=== PATIENT | female | born 1985 | race Two or more races ===

== ENCOUNTER 2022-01-30 14:33 | Inpatient (IN) | payer OTHER ==
[~2022-01-30] VITALS: Ht 175.3 cm; Wt 52.6 kg
--- NOTE | 2022-01-30 14:55 | NUR ---
BLOOD SUGAR IS 48. LAW AWARE.
[2022-01-30] MEDS ORDERED: DEXTROSE 50%-WATER 50 ML DISP.SYRIN ONE (14:56)
[2022-01-30] MEDS ORDERED: LEVETIRACETAM (500MG) 500 MG/5 ML VIAL IV ONE (14:58)
[2022-01-30] MEDS ORDERED: LEVETIRACETAM (500MG) 500 MG in IV NS 0.9% 100 ML IV ONE (15:00)
[2022-01-30] MEDS ORDERED: IV NS 0.9% 1,000 ML BAG IV ONE (15:00)
--- NOTE | 2022-01-30 15:03 | NUR ---
DR. AMOR [phone]
[2022-01-30 15:19] LABS: BASOPHILS # (AUTO) 0.1 K/uL (0.0-0.2); BASOPHILS % (AUTO) 0.9 % (0.0-2.0); EOSINOPHILS % (AUTO) 0.3 % (0.0-6.0); HEMATOCRIT 38 % (33-45); HEMOGLOBIN 12.4 g/dL (11.5-14.8); LYMPHOCYTES # (AUTO) 2.6 K/uL (0.8-4.8); LYMPHOCYTES % (AUTO) 44.1 % (20.0-44.0); MEAN CORPUSCULAR HGB CONC 33 g/dl (31.0-36.0); MEAN CORPUSCULAR VOLUME 83 fL (82-100); MONOCYTES # (AUTO) 0.5 K/uL (0.1-1.30); MONOCYTES % (AUTO) 8.7 % (2.0-12.0); NEUTROPHILS # (AUTO) 2.7 K/uL (1.8-8.9); PLATELET COUNT (AUTO) 316 K/uL (150-450); RED BLOOD CELL COUNT(AUTO) 4.57 MIL/uL (4.0-5.2); WHITE BLOOD COUNT (AUTO) 5.9 K/uL (4.3-11.0)
[2022-01-30] MEDS: POTASSIUM CL. PREMIX PERIPHER. 50 ML IV SCH ×5 (15:30→21:00)
[2022-01-30] MEDS ORDERED: DEXTROSE 50%-WATER 50 ML DISP.SYRIN IVP ONE (15:30)
--- NOTE | 2022-01-30 15:35 | NUR ---
URINE SPECIMEN COLLECTED SENT TO LAB
--- NOTE | 2022-01-30 15:40 | NUR ---
BS = 133
[2022-01-30 15:44] LABS: CALCIUM, SERUM 9.2 mg/dL (8.5-10.1); CARBON DIOXIDE 29 mmol/L (21-32); CHLORIDE 100 mmol/L (98-107); CREATININE 1.3 mg/dL (0.6-1.3); GLUCOSE 52 mg/dL (74-106); SODIUM SERUM 142 mmol/L (136-145); UREA NITROGEN, BLOOD 7 mg/dL (7-18)
[2022-01-30 15:47] LABS: POTASSIUM 2.5 mmol/L (3.5-5.1)
[2022-01-30 15:49] LABS: ALANINE AMINOTRANSFERASE 34 U/L (12-78); ALKALINE PHOSPHATASE 64 U/L (46-116); ASPARTATE AMINOTRANSFERASE 33 U/L (15-37); BILIRUBIN,DIRECT 0.1 mg/dL (0.0-0.2); BILIRUBIN,TOTAL 0.4 mg/dL (0.2-1.0); TOTAL PROTEIN, SERUM 7.3 g/dL (6.4-8.2)
[2022-01-30 15:50] LABS: ALCOHOL, BLOOD < 3 mg/dL (0-0)
[2022-01-30] MEDS ORDERED: Magnesium 1GM/D5W 100ML PREMIX 100 ML IV ONE (15:54)
[2022-01-30] MEDS ORDERED: POTASSIUM CHLORIDE 20 MEQ TAB.PRT.SR PO ONE ×2 (15:54→16:00)
[2022-01-30] MEDS ORDERED: METOCLOPRAMIDE HCL 10 MG/2 ML VIAL ONE (15:54)
[2022-01-30] MEDS ORDERED: POTASSIUM CL. PREMIX PERIPHER. 50 ML ONE (15:54)
[2022-01-30] MEDS ORDERED: METOCLOPRAMIDE HCL 10 MG/2 ML VIAL IV ONE (16:00)
[2022-01-30] MEDS ORDERED: Magnesium 1GM/D5W 100ML PREMIX PIGGYBACK IV ONE (16:00)
[2022-01-30] MEDS ORDERED: PROGESTERONE (16:19)
[2022-01-30] MEDS ORDERED: GABA-532 PO (16:19)
[2022-01-30] MEDS ORDERED: FINA5TAB11 PO (16:19)
[2022-01-30] MEDS ORDERED: CHOL200059 PO (16:19)
[2022-01-30] MEDS ORDERED: ESTR1.25 PO (16:19)
--- NOTE | 2022-01-30 16:56 | NUR ---
DR. CRUZ SPEAKING WITH DR. MUÑOZ.
--- NOTE | 2022-01-30 17:12 | NUR ---
[facility] CALLED CROP OR GRAIN FARMER PAGED.
[2022-01-30] MEDS ORDERED: POTASSIUM CL. PREMIX PERIPHER. 150 ML ONE (17:47)
--- NOTE | 2022-01-30 17:59 | NUR ---
BED GIVEN [phone] NURSE MAYORGA
[2022-01-30] MEDS ORDERED: MAGNESIUM HYDROXIDE 30 ML UDC PO PRN (19:00)
[2022-01-30] MEDS ORDERED: MAG HYDROX/AL HYDROX/SIMETH 30 ML UDC PO PRN (19:00)
[2022-01-30] MEDS ORDERED: ACETAMINOPHEN 325 MG TABLET PO PRN (19:00)
[2022-01-30] MEDS ORDERED: Z GUARD REMEDY 4 OZ OINT TP PRN (19:00)
[2022-01-30] MEDS ORDERED: ONDANSETRON HCL/PF 4 MG/2 ML VIAL IVP PRN (19:00)
--- NOTE | 2022-01-30 20:18 | NUR ---
REPORT GIVEN TO DENICE DAILEY FOR RIKKI
[2022-01-30 21:05] VITALS: BP 85/45
--- NOTE | 2022-01-30 21:10 | NUR ---
patient transferred to [facility] via acls
[2022-01-30] MEDS: IV NS 0.9% 1,000 ML IV SCH (21:36)
[2022-01-30 22:18] VITALS: BP 85/49
[2022-01-31] VITALS: BP 87/46
[2022-01-31] MEDS: IV NS 0.9% 1,000 ML IV SCH (02:54)
[2022-01-31 04:00] VITALS: BP 88/43
--- NOTE | 2022-01-31 04:26 | NUR ---
CLOSING NOTES: ALERT AND ORIENTATED X3 ADMITTED FROM THE ER DX SEIZURES LARGE SNACK CONSUMED REQUESTED FOOD WAS HUNGARY SLEPT THRU THE NIGHT BUT IS EASILY AROUSED WHEN NAME SPOKEN\ CALL LIGHT WITHIN HER REACH BED ALARM ON SIDE RAILS PADDED IV INFUSING RIGHT AC
[2022-01-31 06:35] LABS: BASOPHILS % (AUTO) 0.4 % (0.0-2.0); EOSINOPHILS % (AUTO) 0.7 % (0.0-6.0); HEMATOCRIT 30 % (33-45); HEMOGLOBIN 9.9 g/dL (11.5-14.8); LYMPHOCYTES # (AUTO) 2.4 K/uL (0.8-4.8); MEAN CORPUSCULAR HGB CONC 33 g/dl (31.0-36.0); MEAN CORPUSCULAR VOLUME 83 fL (82-100); MONOCYTES # (AUTO) 0.4 K/uL (0.1-1.30); MONOCYTES % (AUTO) 6.1 % (2.0-12.0); NEUTROPHILS # (AUTO) 3.7 K/uL (1.8-8.9); NEUTROPHILS % (AUTO) 56.8 % (43.0-81.0); PLATELET COUNT (AUTO) 227 K/uL (150-450); RED BLOOD CELL COUNT(AUTO) 3.58 MIL/uL (4.0-5.2); WHITE BLOOD COUNT (AUTO) 6.6 K/uL (4.3-11.0)
[2022-01-31 07:01] LABS: CALCIUM, SERUM 7.9 mg/dL (8.5-10.1); MAGNESIUM 2.1 mg/dL (1.8-2.4); PHOSPHORUS 3.8 mg/dL (2.5-4.9); POTASSIUM 3.3 mmol/L (3.5-5.1)
--- NOTE | 2022-01-31 07:27 | NUR ---
RN OPENING NOTES RECEIVED PATIENT IN BED ,AWAKE, A/O X4, VERBALLY RESPONSIVE. NO SIGNS OF ACUTE DISTRESS NOTED. ON ROOM AIR, BREATHING EVEN AND UNLABORED. ON TELE MONITOR SHOWING SINUS RHYTHM, HR @73. DENIES ANY PAIN AT THIS TIME. WITH IV ACCESS ON RIGHT AC #20G WITH NS @ 100 ML/HR RUNNING. SAFETY MEASURE IN PLACE. BED IN LOWEST AND LOCKED POSITION, SIDE RAILS UP, CALL LIGHT PLACED WITHIN EASY REACH. WILL CONTINUE TO MONITOR PATIENT.
[2022-01-31] MEDS ORDERED: POTASSIUM CHLORIDE 20 MEQ TAB.PRT.SR PO ONE (08:00)
[2022-01-31] MEDS ORDERED: MEDR10TA10 PO (08:08)
[2022-01-31] MEDS ORDERED: LEVE500T9 PO (08:49)
[2022-01-31] MEDS ORDERED: ESTROGENS,CONJUGATED 1.25 MG TABLET PO SCH ×2 (09:00)
[2022-01-31] MEDS ORDERED: GABAPENTIN 100 MG CAPSULE PO SCH (09:00)
[2022-01-31] MEDS ORDERED: CHOLECALCIFEROL 1,000 UNIT TABLET (VIT D3) PO SCH (09:00)
[2022-01-31] MEDS ORDERED: FINASTERIDE (5 MG) 5 MG TABLET PO SCH (09:00)
[2022-01-31] MEDS ORDERED: LEVETIRACETAM (250 MG) 250 MG TABLET PO ONE (09:00)
--- NOTE | 2022-01-31 10:33 | NUR ---
VP INFORMATION TECHNOLOGY NOTE DISCHARGED PATIENT HOME IN STABLE CONDITION. PATIENT A/O X4, ABLE TO MAKE NEEDS KNOWN. IV ACCESS ON RIGHT AC REMOVED, NO BLEEDING NOTED, PRESSURE DRESSING APPLIED TO SITE. ARM NAME BAND REMOVED. ALL BELONGINGS ACCOUNTED FOR, FORM SIGNED BY PATIENT. EXIT CARE FOLDER AND PRESCRIPTION GIVEN TO PATIENT, DISCHARGE INSTRUCTIONS PROVIDED WITH VERBALIZATION OF UNDERSTANDING. PATIENT LEFT UNIT @1030 AMBULATORY, PICKED UP BY FATHER MT. CN AWARE OF DISCHARGE.
== END 2022-01-31 10:30 | disposition home or self-care (01) | DRG 424 ==
LOC: ER 14:38 → TELE 19:30
PROVIDERS: ADMIT Internal Medicine; ATTEND Internal Medicine
DX: E16.2 Hypoglycemia, unspecified (principal); R56.9 Unspecified convulsions; D63.8 Anemia in other chronic diseases classified elsewhere; E88.89 Other specified metabolic disorders; E23.0 Hypopituitarism; E87.6 Hypokalemia; Z20.822 Contact with and (suspected) exposure to COVID-19; Z79.890 Hormone replacement therapy; Z79.899 Other long term (current) drug therapy; G62.9 Polyneuropathy, unspecified
CPT/HCPCS: 36415; 70450-TC; 80048-TC; 80076-TC; 82962-TC; 83735-TC; 84100-TC; 84703-TC; 85025-TC; 85730-TC; 87081-TC; C9803; G0378; G0480; J1953; J2765; J3475; J3480; J7030